=== PATIENT | female | born 1995 | race Hispanic/Latino ===

== ENCOUNTER 2016-10-02 10:53 | Day surgery (SDC) | payer OTHER ==
[2016-10-02] MEDS ORDERED: DIPRIVAN 10 MG/ML IV ONE (12:26)
[2016-10-02] MEDS ORDERED: NACL 0.9% 1000 ML 1,000 ML IV SCH (13:00)
--- NOTE | 2016-10-02 13:15 | Operative Report ---
Operative Report Operative Report: Date: 10/02/2016 Operative Report: Date of procedure: 10/02/2016 Procedure: Esophagogastroduodenoscopy with multiple mucosal biopsies Attending physician: Osvaldo Sullivan MD Retail Account Representative: Osvaldo Sullivan MD Indication: Patient is a 21-year-old female who presented with a history of epigastric pain with indigestion and heartburn, bloating and intestinal gas. An upper endoscopy is done to assess patient so that treatment may be directed based on the findings. Consent: Informed consent was obtained after advising the patient and family regarding nature of this procedure, its indications, potential benefits as well as possible complications including but not limited to bleeding perforation and adverse reaction to medication, infection as well as other cardiopulmonary complications. An informed written and verbal consent was then obtained after due opportunity was provided for questions and answers. Monitoring: Patient was monitored continuously with pulse oximetry and electrocardiographic recordings as well as blood pressure recordings. Vital signs remained stable throughout this procedure with no untoward events. Preoperative assessment: Patient was assessed immediately prior to this procedure for capacity to tolerate monitored anesthesia care and moderate sedation as well as general anesthesia. Patient's ASA classification is 1, Mallampati class is 2, Hyomental distance is 3. Instrument: Stylecrookn video endoscope Medications: Propofol given intravenously in divided doses. For details please refer to anesthesia records. Description of procedure: Patient was placed in the left lateral decubitus position after achieving sedation, the endoscope was introduced into the esophagus under direct vision. It was then advanced beyond the esophagus into the stomach and then beyond the stomach into the duodenum and to the second portion of the duodenum. It was subsequently withdrawn with careful inspection of all mucosal surfaces with the following findings. Findings: Patient had erosive esophagitis of moderate severity with linear erosions and small ulcers involving the distal esophagus. There was a 2-3 cm sliding hiatal hernia seen on entry into the stomach. There was erythema and erosions in the gastric antrum. Biopsies of the antrum were obtained for histopathology. The duodenum was normal to second portion. Impression: Erosive esophagitis of moderate severity Hiatal hernia. Mucosal changes suggestive of gastritis. Plan: Follow pathology report. Continue treatment with proton pump inhibitors but increase dose to 40 mg daily. Maintain antireflux measures. Direct additional treatment based on the pathology report.
--- NOTE | 2016-10-02 13:16 | Discharge Summary ---
Short Stay Discharge Plan Activity: advance as tolerated Weight Bearing Status: Weight Bear as Tolerated Diet: regular
[2016-10-02 13:37] VITALS: BP 122/76
--- NOTE | 2016-10-02 13:42 | Post Anesthesia Evaluation ---
- Post Anesthesia Evaluation Patient Participated: Yes Airway Patent: Yes Stable Respiratory Function: Yes Nausea/Vomiting: No Temp > 96.8F: Yes Pain Manageable: Yes Adequeate Hydration: Yes Anesthesia Complications: No Block Receding Appropriately: Not Applicable Patient on Ventilator: No
--- NOTE | 2016-10-02 15:09 | Anesthesia Day of Surgery ---
Anesthesia Day of Surgery - Day of Surgery Patient Examined: Yes Patient H&P Reviewed: Yes Patient is NPO: Yes
--- NOTE | 2016-10-02 15:10 | Anesthesia Consultation ---
Anesthesia Consult and Med Hx Date of service: 10/02/16 - Airway Anesthetic Teeth Evaluation: Good ROM Head & Neck: Adequate Mental/Hyoid Distance: Adequate Mallampati Class: Class II Intubation Access Assessment: Probably Good - Pulmonary Exam CTA: Yes - Cardiac Exam Cardiac Exam: RRR - Pre-Operative Health Status ASA Pre-Surgery Classification: ASA2 Proposed Anesthetic Plan: MAC - Pulmonary Hx Smoking: No Hx Asthma: Yes (prn) - Cardiovascular System Hx Hypertension: No Hx Heart Attack/AMI: No - Gastrointestinal Hx Gastroesophageal Reflux Disease: Yes - Additional Comments Anesthesia Medical History Comments: No previous anesthesia
== END 2016-10-02 10:54 | disposition home or self-care (01) ==
LOC: GIO 10:53
PROVIDERS: ATTEND Internal Medicine Gastroenterology
DX: K29.50 Unspecified chronic gastritis without bleeding (principal); K22.10 Ulcer of esophagus without bleeding; K44.9 Diaphragmatic hernia without obstruction or gangrene; K21.0 Gastro-esophageal reflux disease with esophagitis; J45.909 Unspecified asthma, uncomplicated; F32.9 Major depressive disorder, single episode, unspecified; F41.9 Anxiety disorder, unspecified
CPT/HCPCS: 43239; 81025; 88305; 88342; J2704; J7030